=== PATIENT | female | born 1940 | race Caucasian/White ===

== ENCOUNTER 2019-01-31 11:58 | Inpatient (IN) | payer MEDICARE, BC ==
[2019-01-31] MEDS ORDERED: DILTIAZEM ER 120 MG C24 PO SCH (13:00)
[2019-01-31] MEDS: SODIUM CHLORIDE 0.9% FLUSH 10 ML SOL IV SCH ×5 (13:49→23:05)
[2019-01-31] MEDS ORDERED: FUROSEMIDE 40 MG SOL IV SCH ×2 (15:00→21:00)
[2019-01-31] MEDS ORDERED: DILTIAZEM ER 120 MG C24 PO ONE (17:30)
[2019-01-31] MEDS: NOVOLOG FLEXPEN SC SCH ×2 (17:36→20:24)
[2019-01-31] MEDS: ELIQUIS 5 MG PO SCH (20:23)
[2019-01-31] MEDS ORDERED: METOPROLOL TARTRATE 25 MG TAB PO SCH (21:00)
[2019-01-31] MEDS ORDERED: METOPROLOL TARTRATE 5 MG/5 ML SOL IV ONE (21:33)
[2019-01-31] MEDS ORDERED: MORPHINE SULFATE 10 MG/ML SOL IV PRN (22:50)
[2019-02-01] MEDS: LEVOTHYROXINE SODIUM 50 MCG TAB PO SCH (06:36)
[2019-02-01] MEDS: SODIUM CHLORIDE 0.9% FLUSH 10 ML SOL IV SCH ×4 (06:36→20:07)
[2019-02-01 07:25] LABS: BLOOD UREA NITROGEN 26 mg/dl (7-18); CALCIUM 8.8 mg/dl (8.5-10.1); CHLORIDE 103 mMol/L (98-107); CREATININE 1.12 mg/dl (0.60-1.00); GLUCOSE 148 mg/dl (74-106); TROP I < 0.017 ng/ml (0.000-0.056)
[2019-02-01] MEDS ORDERED: FUROSEMIDE 40 MG SOL IV SCH (09:00)
[2019-02-01] MEDS ORDERED: DILTIAZEM ER 120 MG C24 PO SCH (09:00)
[2019-02-01] MEDS: NOVOLOG FLEXPEN SC SCH ×4 (09:44→21:38)
[2019-02-01] MEDS: DILTIAZEM ER 120 MG C24 PO SCH (09:45)
[2019-02-01] MEDS: PRAVASTATIN SODIUM 20 MG TAB PO SCH (09:47)
[2019-02-01] MEDS: METOPROLOL TARTRATE 25 MG TAB PO SCH ×2 (09:48→20:06)
[2019-02-01] MEDS: METFORMIN HYDROCHLORIDE 500 MG TAB PO SCH (09:48)
[2019-02-01] MEDS: POTASSIUM CHLORIDE 10 MEQ TER PO SCH (09:48)
[2019-02-01] MEDS: ELIQUIS 5 MG PO SCH ×2 (09:49→20:08)
[2019-02-01] MEDS: FUROSEMIDE 40 MG SOL IV SCH (13:27)
[2019-02-01] MEDS ORDERED: MAGNESIUM HYDROXIDE 30 ML SUS PO PRN (14:35)
[2019-02-02] MEDS: LEVOTHYROXINE SODIUM 50 MCG TAB PO SCH (06:10)
[2019-02-02] MEDS: SODIUM CHLORIDE 0.9% FLUSH 10 ML SOL IV SCH ×2 (06:10→12:57)
[2019-02-02 07:36] LABS: CARBON DIOXIDE 30.9 mEq/L (21-32); CREATININE 1.16 mg/dl (0.60-1.00)
[2019-02-02] MEDS: NOVOLOG FLEXPEN SC SCH ×3 (08:25→17:43)
[2019-02-02] MEDS ORDERED: DILTIAZEM ER 120 MG C24 PO SCH (09:15)
[2019-02-02] MEDS ORDERED: METOPROLOL TARTRATE 50 MG TAB PO SCH (09:15)
[2019-02-02 10:25] VITALS: RESP 20
[2019-02-02] MEDS: MAGNESIUM HYDROXIDE 30 ML SUS PO SCH ×2 (10:27→14:25)
[2019-02-02] MEDS: ELIQUIS 5 MG PO SCH ×2 (10:27→18:56)
[2019-02-02] MEDS: PRAVASTATIN SODIUM 20 MG TAB PO SCH (10:28)
[2019-02-02] MEDS: METFORMIN HYDROCHLORIDE 500 MG TAB PO SCH (10:29)
[2019-02-02] MEDS: POTASSIUM CHLORIDE 10 MEQ TER PO SCH (10:30)
[2019-02-02] MEDS: DILTIAZEM ER 120 MG C24 PO SCH (11:22)
[2019-02-02] MEDS: FUROSEMIDE 40 MG SOL IV SCH (11:22)
[2019-02-02] MEDS: METOPROLOL TARTRATE 25 MG TAB PO SCH (11:22)
[2019-02-02] MEDS ORDERED: BISACODYL 10 MG SUP PR ONE (13:49)
[2019-02-02 15:53] VITALS: BP 115/71; PULSE 77; TEMP 97.6; O2SAT 93
[2019-02-03] MEDS ORDERED: FUROSEMIDE 40 MG TAB PO SCH (09:00)
== END 2019-02-02 19:30 | disposition home or self-care (01) | DRG 639 ==
LOC: ACUTE CARE 11:58
PROVIDERS: ADMIT Family Medicine; ATTEND Family Medicine
DX: E11.9 Type 2 diabetes mellitus without complications (principal); I50.9 Heart failure, unspecified; I10 Essential (primary) hypertension; R06.02 Shortness of breath; R53.1 Weakness; K59.00 Constipation, unspecified
CPT/HCPCS: 36415; 80048; 82962; 84484; 93005; 93012; 93306; J1940; J2270; A9270; A9270-GY; J1815; J3490

== ENCOUNTER 2019-02-03 21:50 | Inpatient (IN) | payer MEDICARE, BC ==
[2019-02-03] MEDS ORDERED: ALBUTEROL/IPRATROPIUM 1 VIAL SOL INH ONE (22:10)
[2019-02-03] MEDS ORDERED: ALBUTEROL NEB SOL 2.5MG/3ML 1 VIAL SOL ONE (22:25)
[2019-02-03 22:33] LABS: BASOPHILS % (AUTO) 1 % (0-3); EOSINOPHILS % (AUTO) 3 % (0-9); HEMATOCRIT 39 % (35-47); LYMPHOCYTES % (AUTO) 17.5 % (10-50); MEAN CORPUSCULAR HEMOGLOBIN 27.3 pg (27.0-32.0); MEAN CORPUSCULAR HGB CONC 31.1 gm/dl (32.0-36.0); MEAN CORPUSCULAR VOLUME 88 fL (81-99); MONOCYTES % (AUTO) 7.7 % (0-12); NEUTROPHILS % (AUTO) 71.4 % (37-80)
[2019-02-03 22:35] LABS: LACTIC ACID 2.1 mMol/L (0.0-2.0)
[2019-02-03] MEDS ORDERED: SODIUM CHLORIDE 0.9% 1000ML 1,000 ML IV ONE (22:41)
[2019-02-03 22:48] LABS: ALBUMIN 2.9 gm/dl (3.4-5.0); CARBON DIOXIDE 29.6 mEq/L (21-32); CREATININE 1.4 mg/dl (0.60-1.00); TOTAL PROTEIN 7.4 gm/dl (6.4-8.2)
[2019-02-03 23:42] LABS: INFLUENZA A NEGATIVE (NEGATIVE); INFLUENZA B NEGATIVE (NEGATIVE)
[2019-02-04] MEDS ORDERED: ALBUTEROL NEB SOL 2.5MG/3ML 1 VIAL SOL NEB ONE (00:18)
[2019-02-04] MEDS ORDERED: PANTOPRAZOLE SODIUM 40 MG/10 ML PDS IV ONE (00:19)
[2019-02-04] MEDS ORDERED: PANTOPRAZOLE SODIUM 40 MG/10 ML PDS ONE (00:30)
[2019-02-04] MEDS ORDERED: ALBUTEROL/IPRATROPIUM 1 VIAL SOL ONE (00:39)
[2019-02-04] MEDS ORDERED: ALBUTEROL/IPRATROPIUM 1 VIAL SOL INH ONE (00:40)
[2019-02-04] MEDS ORDERED: SOLUMEDROL 125 MG/2 ML 125 MG/2 ML PDS IV ONE (00:44)
[2019-02-04] MEDS: ALBUTEROL/IPRATROPIUM 1 VIAL SOL INH SCH ×4 (00:45→18:19)
[2019-02-04] MEDS ORDERED: SOLUMEDROL 125 MG/2 ML 125 MG/2 ML PDS ONE (01:10)
[2019-02-04] MEDS: SIMETHICONE 40 MG/0.6 ML SUS PO SCH ×4 (02:42→20:41)
[2019-02-04 07:35] LABS: LACTIC ACID 1.7 mMol/L (0.0-2.0)
[2019-02-04 07:48] LABS: BLOOD UREA NITROGEN 38 mg/dl (7-18); CHLORIDE 101 mMol/L (98-107); CREATININE 1.16 mg/dl (0.60-1.00); GLUCOSE 220 mg/dl (74-106); TROP I < 0.017 ng/ml (0.000-0.056)
[2019-02-04] MEDS ORDERED: SODIUM CHLORIDE 0.9% 1000ML 1,000 ML IV ONE (08:32)
[2019-02-04] MEDS ORDERED: LEVOTHYROXINE SODIUM 50 MCG TAB PO SCH (09:00)
[2019-02-04] MEDS ORDERED: DILTIAZEM ER 120 MG C24 PO SCH (09:00)
[2019-02-04] MEDS ORDERED: FUROSEMIDE 40 MG SOL IV SCH (09:00)
[2019-02-04] MEDS ORDERED: FUROSEMIDE 40 MG TAB PO SCH (09:00)
[2019-02-04] MEDS: METOPROLOL TARTRATE 50 MG TAB PO SCH ×2 (09:17→20:44)
[2019-02-04] MEDS: POTASSIUM CHLORIDE 10 MEQ TER PO SCH (09:18)
[2019-02-04] MEDS: PRAVASTATIN SODIUM 20 MG TAB PO SCH (09:18)
[2019-02-04] MEDS: METFORMIN HYDROCHLORIDE 500 MG TAB PO SCH (09:19)
[2019-02-04] MEDS: MULTIVITAMIN2 1 EA TAB PO SCH (09:19)
[2019-02-04] MEDS: PANTOPRAZOLE SODIUM 40 MG/10 ML PDS IV SCH ×2 (10:00→20:50)
[2019-02-04] MEDS: LEVOTHYROXINE SODIUM 50 MCG TAB PO SCH (10:27)
[2019-02-04] MEDS ORDERED: PATIENT EDUCATION 1 MISC PRN (12:57)
[2019-02-04] MEDS: NOVOLOG FLEXPEN SC SCH ×4 (13:09→21:11)
[2019-02-04] MEDS: SODIUM CHLORIDE 0.9% FLUSH 10 ML SOL IV SCH (17:51)
[2019-02-05] MEDS: ALBUTEROL/IPRATROPIUM 1 VIAL SOL INH SCH ×4 (01:48→18:34)
[2019-02-05] MEDS: SODIUM CHLORIDE 0.9% FLUSH 10 ML SOL IV SCH ×3 (05:51→17:32)
[2019-02-05] MEDS: LEVOTHYROXINE SODIUM 50 MCG TAB PO SCH (06:00)
[2019-02-05 07:26] LABS: HEMATOCRIT 38 % (35-47); MEAN CORPUSCULAR HEMOGLOBIN 27.5 pg (27.0-32.0); MEAN CORPUSCULAR HGB CONC 31.3 gm/dl (32.0-36.0); MEAN CORPUSCULAR VOLUME 88 fL (81-99)
[2019-02-05 07:30] LABS: CALCIUM 9.1 mg/dl (8.5-10.1); CARBON DIOXIDE 25.7 mEq/L (21-32); CREATININE 1.45 mg/dl (0.60-1.00); CRP INFLAMMATORY 2.92 mg/dl (0.00-0.33)
[2019-02-05] MEDS ORDERED: BISACODYL 10 MG SUP PR PRN (08:23)
[2019-02-05] MEDS ORDERED: MAGNESIUM HYDROXIDE 30 ML SUS PO PRN (08:23)
[2019-02-05 08:29] LABS: ANISOCYTOSIS SLIGHT AMT; BAND NEUTROPHILS % (MANUAL) 0 %; BASOPHILS % (MANUAL) 0 % (0-3); EOSINOPHILS % (MANUAL) 0 % (0-9); LYMPHOCYTES % (MANUAL) 10 % (10-50); MONOCYTES % (MANUAL) 0 % (0-12); NEUTROPHILS % (MANUAL) 90 % (37-80); PLATELET MORPHOLOGY COMMENT NORMAL
[2019-02-05] MEDS: NOVOLOG FLEXPEN SC SCH ×4 (08:29→20:13)
[2019-02-05] MEDS: POTASSIUM CHLORIDE 10 MEQ TER PO SCH (08:31)
[2019-02-05] MEDS: PRAVASTATIN SODIUM 20 MG TAB PO SCH (08:32)
[2019-02-05] MEDS: MULTIVITAMIN2 1 EA TAB PO SCH (08:33)
[2019-02-05] MEDS: METFORMIN HYDROCHLORIDE 500 MG TAB PO SCH (08:34)
[2019-02-05] MEDS ORDERED: FUROSEMIDE 20mg SOL IV SCH (09:00)
[2019-02-05] MEDS: SIMETHICONE 40 MG/0.6 ML SUS PO SCH ×4 (10:11→20:10)
[2019-02-05] MEDS: METOPROLOL TARTRATE 50 MG TAB PO SCH ×2 (10:11→20:11)
[2019-02-05] MEDS: PANTOPRAZOLE SODIUM 40 MG/10 ML PDS IV SCH ×2 (10:16→20:21)
[2019-02-05] MEDS: DILTIAZEM ER 120 MG C24 PO SCH (10:22)
[2019-02-05] MEDS: AMIODARONE 200 MG TAB PO SCH ×2 (10:22→20:12)
[2019-02-05] MEDS: FUROSEMIDE 20mg SOL IV SCH (14:15)
[2019-02-06] MEDS ORDERED: ONDANSETRON HCL 4 MG/2 ML SOL IV PRN (00:33)
[2019-02-06] MEDS ORDERED: FENTANYL 100MCG/2ML SOL IV PRN (00:34)
[2019-02-06] MEDS: ALBUTEROL/IPRATROPIUM 1 VIAL SOL INH SCH ×5 (00:38→23:43)
[2019-02-06] MEDS ORDERED: FENTANYL 100MCG/2ML SOL ONE (01:37)
[2019-02-06] MEDS ORDERED: FENTANYL 100MCG/2ML SOL IV ONE (01:45)
[2019-02-06] MEDS: SODIUM CHLORIDE 0.9% FLUSH 10 ML SOL IV SCH ×5 (01:55→20:44)
[2019-02-06] MEDS ORDERED: ALUMINUM/MAGNESIUM 30 ML SUS PO PRN (03:14)
[2019-02-06] MEDS: LEVOTHYROXINE SODIUM 50 MCG TAB PO SCH (06:38)
[2019-02-06 07:36] LABS: BASOPHILS % (AUTO) 1 % (0-3); EOSINOPHILS % (AUTO) 1 % (0-9); HEMATOCRIT 37 % (35-47); HEMOGLOBIN 11.6 gm/dl (12.0-15.5); LYMPHOCYTES % (AUTO) 10.2 % (10-50); MEAN CORPUSCULAR HEMOGLOBIN 27.5 pg (27.0-32.0); MEAN CORPUSCULAR VOLUME 89 fL (81-99); NEUTROPHILS % (AUTO) 80.2 % (37-80)
[2019-02-06 07:37] LABS: CALCIUM 8.9 mg/dl (8.5-10.1); CARBON DIOXIDE 28.8 mEq/L (21-32); CREATININE 1.64 mg/dl (0.60-1.00); CRP INFLAMMATORY 2.5 mg/dl (0.00-0.33)
[2019-02-06] MEDS: NOVOLOG FLEXPEN SC SCH ×4 (08:27→20:30)
[2019-02-06] MEDS: METFORMIN HYDROCHLORIDE 500 MG TAB PO SCH (08:29)
[2019-02-06] MEDS: PRAVASTATIN SODIUM 20 MG TAB PO SCH (08:30)
[2019-02-06] MEDS: METOPROLOL TARTRATE 50 MG TAB PO SCH ×2 (08:35→21:02)
[2019-02-06] MEDS: PANTOPRAZOLE SODIUM 40 MG/10 ML PDS IV SCH ×2 (08:44→21:24)
[2019-02-06] MEDS: MULTIVITAMIN2 1 EA TAB PO SCH (08:44)
[2019-02-06] MEDS: SIMETHICONE 40 MG/0.6 ML SUS PO SCH ×4 (08:45→21:19)
[2019-02-06] MEDS: AMIODARONE 200 MG TAB PO SCH ×2 (08:50→21:18)
[2019-02-06] MEDS: FUROSEMIDE 20mg SOL IV SCH ×2 (08:50→13:56)
[2019-02-06] MEDS: DILTIAZEM ER 120 MG C24 PO SCH (08:50)
[2019-02-06] MEDS ORDERED: SODIUM CHLORIDE 0.9% 100 ML 100 ML IV ONE ×2 (13:24→20:23)
[2019-02-06] MEDS ORDERED: PIPERACILLIN/TAZOBACT 3.375 GM PDS IV ONE ×2 (13:24→20:23)
[2019-02-06] MEDS: PIPERACILLIN/TAZOBACT 3.375 GM 3 GM in SODIUM CHLORIDE 0.9% 100 ML 100 ML IV SCH ×2 (13:34→20:40)
[2019-02-06] MEDS: METRONIDAZOLE 250 MG TAB PO SCH ×3 (13:34→21:17)
[2019-02-06] MEDS: GLIPIZIDE 5 MG TAB PO SCH (17:39)
[2019-02-06] MEDS ORDERED: PIPERACILLIN/TAZOBACT 3.375 GM 3.375 GM in SODIUM CHLORIDE 0.9% 100 ML 100 ML IV SCH (23:00)
[2019-02-07] MEDS: SODIUM CHLORIDE 0.9% FLUSH 10 ML SOL IV SCH ×5 (02:32→20:20)
[2019-02-07] MEDS: PIPERACILLIN/TAZOBACT 3.375 GM 3.375 GM in SODIUM CHLORIDE 0.9% 100 ML 100 ML IV SCH ×3 (04:36→20:22)
[2019-02-07] MEDS: LEVOTHYROXINE SODIUM 50 MCG TAB PO SCH (07:07)
[2019-02-07] MEDS: ALBUTEROL/IPRATROPIUM 1 VIAL SOL INH SCH ×3 (07:08→17:49)
[2019-02-07 07:10] LABS: BASOPHILS % (AUTO) 1 % (0-3); EOSINOPHILS % (AUTO) 5 % (0-9); HEMATOCRIT 35 % (35-47); LYMPHOCYTES % (AUTO) 17.1 % (10-50); MEAN CORPUSCULAR HGB CONC 31.9 gm/dl (32.0-36.0); MEAN CORPUSCULAR VOLUME 88 fL (81-99); MONOCYTES % (AUTO) 7.7 % (0-12); NEUTROPHILS % (AUTO) 68.8 % (37-80)
[2019-02-07 07:30] LABS: ALBUMIN 2.8 gm/dl (3.4-5.0); BILIRUBIN,TOTAL 0.9 mg/dl (0.2-1.0); CALCIUM 8.4 mg/dl (8.5-10.1); CARBON DIOXIDE 30.1 mEq/L (21-32); CREATININE 1.6 mg/dl (0.60-1.00); CRP INFLAMMATORY 5.96 mg/dl (0.00-0.33); TOTAL PROTEIN 6.7 gm/dl (6.4-8.2)
[2019-02-07] MEDS: NOVOLOG FLEXPEN SC SCH ×4 (07:30→21:18)
[2019-02-07] MEDS: GLIPIZIDE 5 MG TAB PO SCH ×2 (07:38→17:35)
[2019-02-07] MEDS: PRAVASTATIN SODIUM 20 MG TAB PO SCH (08:49)
[2019-02-07] MEDS: MULTIVITAMIN2 1 EA TAB PO SCH (08:51)
[2019-02-07] MEDS: METOPROLOL TARTRATE 50 MG TAB PO SCH ×2 (09:00→20:43)
[2019-02-07] MEDS: METRONIDAZOLE 250 MG TAB PO SCH ×4 (09:00→20:44)
[2019-02-07] MEDS: AMIODARONE 200 MG TAB PO SCH ×2 (09:00→20:43)
[2019-02-07] MEDS: PANTOPRAZOLE SODIUM 40 MG/10 ML PDS IV SCH ×2 (09:02→21:03)
[2019-02-07] MEDS: FUROSEMIDE 20mg SOL IV SCH ×2 (09:02→13:48)
[2019-02-07] MEDS: SIMETHICONE 40 MG/0.6 ML SUS PO SCH ×4 (09:33→20:48)
[2019-02-07] MEDS: POLYETHYLENE GLYCOL 17 GM/1 TBS PDS PO SCH (09:46)
[2019-02-07] MEDS ORDERED: SODIUM CHLORIDE 0.9% 100 ML 100 ML IV ONE (19:28)
[2019-02-07] MEDS ORDERED: PIPERACILLIN/TAZOBACT 3.375 GM PDS IV ONE (19:28)
[2019-02-07 20:37] VITALS: BP 115/83; TEMP 97.6
[2019-02-08] MEDS: ALBUTEROL/IPRATROPIUM 1 VIAL SOL INH SCH ×2 (02:21→06:17)
[2019-02-08] MEDS ORDERED: SODIUM CHLORIDE 0.9% 100 ML 100 ML IV ONE (04:08)
[2019-02-08] MEDS ORDERED: PIPERACILLIN/TAZOBACT 3.375 GM PDS IV ONE (04:08)
[2019-02-08] MEDS: PIPERACILLIN/TAZOBACT 3.375 GM 3.375 GM in SODIUM CHLORIDE 0.9% 100 ML 100 ML IV SCH (04:21)
[2019-02-08] MEDS: SODIUM CHLORIDE 0.9% FLUSH 10 ML SOL IV SCH ×3 (04:21→09:14)
[2019-02-08 06:32] VITALS: PULSE 89
[2019-02-08] MEDS: LEVOTHYROXINE SODIUM 50 MCG TAB PO SCH (06:33)
[2019-02-08 07:20] LABS: BASOPHILS % (AUTO) 1 % (0-3); EOSINOPHILS % (AUTO) 6 % (0-9); HEMATOCRIT 36 % (35-47); HEMOGLOBIN 11.2 gm/dl (12.0-15.5); LYMPHOCYTES % (AUTO) 20.4 % (10-50); MEAN CORPUSCULAR HEMOGLOBIN 27.6 pg (27.0-32.0); MEAN CORPUSCULAR HGB CONC 31.3 gm/dl (32.0-36.0); MEAN CORPUSCULAR VOLUME 88 fL (81-99); MONOCYTES % (AUTO) 8.2 % (0-12); NEUTROPHILS % (AUTO) 63.8 % (37-80)
[2019-02-08 07:24] LABS: ALBUMIN 2.8 gm/dl (3.4-5.0); BILIRUBIN,TOTAL 0.9 mg/dl (0.2-1.0); CALCIUM 8.1 mg/dl (8.5-10.1); CREATININE 1.68 mg/dl (0.60-1.00); CRP INFLAMMATORY 3.61 mg/dl (0.00-0.33)
[2019-02-08 07:32] LABS: CARBON DIOXIDE 31.8 mEq/L (21-32)
[2019-02-08 08:03] VITALS: RESP 20
[2019-02-08] MEDS: NOVOLOG FLEXPEN SC SCH ×2 (08:17→12:31)
[2019-02-08] MEDS: GLIPIZIDE 5 MG TAB PO SCH (08:26)
[2019-02-08] MEDS ORDERED: PANTOPRAZOLE SODIUM 40 MG ECT PO SCH (09:00)
[2019-02-08] MEDS: AMIODARONE 200 MG TAB PO SCH (09:13)
[2019-02-08] MEDS: METOPROLOL TARTRATE 50 MG TAB PO SCH (09:13)
[2019-02-08] MEDS: METRONIDAZOLE 250 MG TAB PO SCH (09:13)
[2019-02-08] MEDS: FUROSEMIDE 20mg SOL IV SCH (09:13)
[2019-02-08] MEDS: PRAVASTATIN SODIUM 20 MG TAB PO SCH (09:14)
[2019-02-08] MEDS: MULTIVITAMIN2 1 EA TAB PO SCH (09:14)
[2019-02-08] MEDS: POLYETHYLENE GLYCOL 17 GM/1 TBS PDS PO SCH (09:14)
[2019-02-08] MEDS: SIMETHICONE 40 MG/0.6 ML SUS PO SCH (09:14)
[2019-02-08 12:31] VITALS: O2SAT 86
[2019-02-09] MEDS ORDERED: FUROSEMIDE 40 MG TAB PO SCH (09:00)
== END 2019-02-08 13:25 | disposition home or self-care (01) | DRG 440 ==
LOC: ED 21:50 → ACUTE CARE 02-04 01:26
PROVIDERS: ADMIT Internal Medicine; ATTEND Internal Medicine
DX: K85.91 Acute pancreatitis with uninfected necrosis, unspecified (principal); R10.9 Unspecified abdominal pain; R06.02 Shortness of breath; R05 Cough; R06.00 Dyspnea, unspecified; I48.2 Chronic atrial fibrillation; I50.9 Heart failure, unspecified; E03.9 Hypothyroidism, unspecified; E11.9 Type 2 diabetes mellitus without complications; G47.33 Obstructive sleep apnea (adult) (pediatric); I10 Essential (primary) hypertension
CPT/HCPCS: 36415; 71045; 71046; 74018; 74176; 74177; 80048; 80053; 82962; 83605; 83690; 83880; 84443; 84484; 85007; 85025; 85027; 86140; 87040; 87804; 93005; 93012; 94150; 94762; 96365; 96374; 96375; 99223; 99285; J1940; J2405; J2543; J2930; J3010; J7613; Q9967; A9270; A9270-GY; J1815